=== PATIENT | female | born 1980 | race American Indian/Alaskan Native ===

== ENCOUNTER 2018-01-08 09:53 | Day surgery (SDC) | payer OTHER ==
[2018-01-08] MEDS ORDERED: WATER FOR IRRIG STERILE IR ONE (11:36)
[2018-01-08] MEDS ORDERED: WATER FOR IRRIG STERILE ONE (11:37)
[2018-01-08] MEDS ORDERED: XYLOCAINE MPF 2% ONE (13:00)
[2018-01-08] MEDS ORDERED: DIPRIVAN 10 MG/ML IV ONE ×3 (13:55→13:56)
--- NOTE | 2018-01-08 13:57 | Anesthesia Day of Surgery ---
Anesthesia Day of Surgery - Day of Surgery Patient Examined: Yes Patient H&P Reviewed: Yes Patient is NPO: Yes
--- NOTE | 2018-01-08 13:58 | Anesthesia Consultation ---
Anesthesia Consult and Med Hx Date of service: 01/08/18 - Airway Anesthetic Teeth Evaluation: Good ROM Head & Neck: Adequate Mental/Hyoid Distance: Adequate Mallampati Class: Class II Intubation Access Assessment: Probably Good - Pulmonary Exam CTA: Yes - Cardiac Exam Cardiac Exam: RRR - Hematic Hx Anemia: Yes Hx Sickle Cell Disease: No (trait only) - Other Systems Hx Cancer: No
[2018-01-08] MEDS ORDERED: XYLOCAINE TOPICAL 2% 5ML ONE (14:40)
[2018-01-08 15:18] VITALS: BP 112/46
--- NOTE | 2018-01-08 15:34 | Operative Report ---
Operative Report Operative Report: Date:01/08/2018 Procedure: Colonoscopy with Hot biopsy polypectomy. Hemorrhoidal band ligation. Attending physician: Alo Hameed MD Wire Walker: Alo Hameed MD Indication: Patient is a 37-year-old male who presents with rectal bleeding. She also has had anorectal discomfort with symptomatic internal hemorrhoids. This procedure is done to evaluate patient so that treatment may be directed based on the findings. Consent: Informed consent was obtained after advising the patient and family regarding nature of this procedure, its indications, potential benefits as well as possible complications including but not limited to bleeding perforation and adverse reaction to medication, infection as well as other cardiopulmonary complications. An informed written and verbal consent was then obtained after due opportunity was provided for questions and answers. Monitoring: Patient was monitored continuously with pulse oximetry and electrocardiographic recordings as well as blood pressure recordings. Vital signs remained stable throughout this procedure with no untoward events. Preoperative assessment: Patient was assessed immediately prior to this procedure for capacity to tolerate monitored anesthesia care and moderate sedation as well as general anesthesia. Patient's ASA classification is 2, Mallampati class is 2, Hyomental distance is 3. Instrument: [employer] video colonoscope. Multiband ligator Medications: Propofol given intravenously in divided doses for details please refer to anesthesia records. Description of procedure: Patient was placed in the left lateral decubitus position after achieving sedation, a digital rectal examination was performed following which the colonoscope was introduced into the anal verge and advanced to the cecum which was identified by the cecal valve, the appendiceal orifice, as well as by the cecal strap and direct transillumination. The colonoscope was subsequently withdrawn with careful inspection of all mucosal surfaces. Patient tolerated this procedure well and was subsequently taken to the recovery room. The following findings were noted. Findings: The cecum was normal. Ascending colon was normal. Transverse colon was normal. Descending colon was normal. Patient had diminutive polyp in the sigmoid colon which was removed by hot biopsy polypectomy.. On the retroflex view at the anal verge patient had prominent friable internal hemorrhoids. An upper endoscope was preloaded with the multiband ligator reintroduced into the rectum. 2% lidocaine gel was applied in the rectum. In the retroflex view, 5 bands were applied over the hemorrhoids above the dentate line. Patient tolerated procedure well no untoward events. Impression: Sigmoid colon polyps status post Hot biopsy polypectomy. Prominent internal hemorrhoids status post hemorrhoidal band ligation. Plan: Daily sitz baths. High-fiber diet. Patient to apply lidocaine ointment 5% per rectum every 6 hours as needed. Anusol HC suppositories per rectum every night. Patient to use stool softeners as needed. Lactulose 30 ml PO Daily. Tramadol 50 mg every 6 hours as needed for pain. Patient is scheduled for further outpatient follow-up. Patients further instructed that if he developes persistent bleeding and or fevers to call the office immediate
--- NOTE | 2018-01-08 15:34 | Discharge Summary ---
Short Stay Discharge Plan Activity: advance as tolerated Weight Bearing Status: Weight Bear as Tolerated Diet: regular Additional Instructions: Post Sedation D/C Instructions When you return home you may resume your regular diet unless otherwise directed. Go directly home from the hospital and rest quietly. You may resume normal activities tomorrow. Do NOT drive, return to work, operate any machinery or make any important personal or business decisions today. Do NOT drink any alcohol or take nerve or sleeping drugs. They add to the effects of the medicine still present in your body. Follow up with: MELY SARMIENTO MD [Primary Care Provider] - 7 Days
== END 2018-01-08 15:26 | disposition home or self-care (01) ==
LOC: GIO 09:53
PROVIDERS: ATTEND Internal Medicine Gastroenterology
DX: K63.5 Polyp of colon (principal); K64.8 Other hemorrhoids; K62.5 Hemorrhage of anus and rectum; D57.3 Sickle-cell trait
CPT/HCPCS: 45384; 45398; 81025; J2704; 88305